=== PATIENT | female | born 1965 | race Caucasian/White ===

== ENCOUNTER 2020-11-10 00:12 | Emergency (ER) | payer OTHER ==
[~2020-11-10] VITALS: Ht 170.1 cm; Wt 90.7 kg
== END 2020-11-10 04:42 | disposition home or self-care (01) ==
LOC: ED 00:12
DX: M79.89 Other specified soft tissue disorders (principal)

== ENCOUNTER → 2021-07-11 | Outpatient (CLI) | payer OTHER | END | disposition home or self-care (01) | LOC: LAB 01:33 → COVID19 01:33 → LAB 08:31 | PROVIDERS: ATTEND Nurse Practitioner | DX: Z11.52 Encounter for screening for COVID-19 (principal); Z20.822 Contact with and (suspected) exposure to COVID-19 ==